=== PATIENT | male | born 1995 | race Hispanic/Latino ===

== ENCOUNTER 2018-04-26 15:30 | Emergency (ER) | payer BC ==
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
[2018-04-26 16:49] VITALS: TEMP 98.9
[2018-04-26 16:50] VITALS: BP 144/101; O2SAT 99
== END 2018-04-26 16:21 | disposition home or self-care (01) ==
LOC: ER 15:30
DX: T65.893A Toxic effect of other specified substances, assault, initial encounter (principal); Y92.9 Unspecified place or not applicable
CPT/HCPCS: 99283

== ENCOUNTER 2019-02-01 14:19 | Emergency (ER) | payer BC ==
--- NOTE | 2019-02-01 14:48 | EDPHYS ---
Physician Documentation [facility] Name: Demetrio Rizzo Age: 23 yrs Sex: Male : 1995 Arrival Date: 02/01/2019 Time: 14:21 Bed 20 Private MD: ED Physician Ben Mann HPI: 02/01 14:44 This 23 yrs old Male presents to ER via Ambulatory with complaints of Chest snw Pain. 14:44 The patient or guardian reports chest pain that is located primarily in the substernal snw area. The pain does not radiate. Associated signs and symptoms: The patient has no apparent associated signs or symptoms. The chest pain is described as sharp. Duration: The patient or guardian reports multiple episodes, that are intermittent, over past several months. Severity of pain: At its worst the pain was mild. The patient has experienced similar episodes in the past. The patient has not recently seen a physician. pt was placed on HTN med while encarcerated, lost prescription. + smoker. Historical: - Allergies: 14:26 No Known Allergies; aa5 - Home Meds: 14:26 None [Active]; aa5 - PMHx: 14:26 Hypertension; aa5 - PSHx: 14:26 Appendectomy; aa5 - Immunization history:: Adult Immunizations unknown. - Ebola Screening: : No symptoms or risks identified at this time. - Social history:: Smoking status: Patient/guardian denies using tobacco. ROS: 14:46 Constitutional: Negative for fever, chills, and weight loss, Eyes: Negative for injury, snw pain, redness, and discharge, ENT: Negative for injury, pain, and discharge, Neck: Negative for injury, pain, and swelling, Cardiovascular: Negative for palpitations and edema, + chest pain Respiratory: Negative for shortness of breath, cough, wheezing, and pleuritic chest pain, Abdomen/GI: Negative for abdominal pain, nausea, vomiting, diarrhea, and constipation, Back: Negative for injury and pain, : Negative for injury, bleeding, discharge, and swelling, MS/Extremity: Negative for injury and deformity, Skin: Negative for injury, rash, and discoloration, Neuro: Negative for headache, weakness, numbness, tingling, and seizure. Exam: 14:46 Constitutional: This is a well developed, well nourished patient who is awake, alert, snw and in no acute distress. Head/Face: Normocephalic, atraumatic. Eyes: Pupils equal round and reactive to light, extra-ocular motions intact. Lids and lashes normal. Conjunctiva and sclera are non-icteric and not injected. Cornea within normal limits. Periorbital areas with no swelling, redness, or edema. ENT: Nares patent. No nasal discharge, no septal abnormalities noted. Tympanic membranes are normal and external auditory canals are clear. Oropharynx with no redness, swelling, or masses, exudates, or evidence of obstruction, uvula midline. Mucous membranes moist. Neck: Trachea midline, no thyromegaly or masses palpated, and no cervical lymphadenopathy. Supple, full range of motion without nuchal rigidity, or vertebral point tenderness. No Meningismus. Chest/axilla: Normal chest wall appearance and motion. Nontender with no deformity. No lesions are appreciated. Cardiovascular: Bradycardic rate and rhythm with a normal S1 and S2. No gallops, murmurs, or rubs. Normal PMI, no JVD. No pulse deficits. Respiratory: Lungs have equal breath sounds bilaterally, clear to auscultation and percussion. No rales, rhonchi or wheezes noted. No increased work of breathing, no retractions or nasal flaring. Abdomen/GI: Soft, non-tender, with normal bowel sounds. No distension or tympany. No guarding or rebound. No evidence of tenderness throughout. Back: No spinal tenderness. No costovertebral tenderness. Full range of motion. Skin: Warm, dry with normal turgor. Normal color with no rashes, no lesions, and no evidence of cellulitis. MS/ Extremity: Pulses equal, no cyanosis. Neurovascular intact. Full, normal range of motion. Neuro: Awake and alert, GCS 15, oriented to person, place, time, and situation. Cranial nerves II-XII grossly intact. Motor strength 5/5 in all extremities. Sensory grossly intact. Cerebellar exam normal. Normal gait. Vital Signs: 14:26 BP 146 / 99; Pulse 80; Resp 16 S; Temp 99.4(TE); Pulse Ox 97% on R/A; Weight 86.18 kg aa5 (R); Height 5 ft. 6 in. (167.64 cm) (R); Pain 0/10; 14:26 Body Mass Index 30.67 (86.18 kg, 167.64 cm) aa5 MDM: 14:36 Patient medically screened. snw 14:50 ECG:. Data reviewed: vital signs, nurses notes. snw 02/01 14:36 Order name: Chest Pa And Lat (2 Views) XRAY; Complete Time: 15:01 snw 02/01 14:36 Order name: EKG; Complete Time: 14:36 snw 02/01 14:36 Order name: EKG - Nurse/Tech; Complete Time: 14:59 snw EC:50 Rate is 52 beats/min. Rhythm is irregular. IN interval is normal. QRS interval is snw normal. QT interval is normal. No Q waves. Clinical impression: Sinus bradycardia. Administered Medications: 15:07 Drug: Lisinopril 5 mg Route: PO; aj 15:07 Follow up: Response: Medication administered at discharge. aj Disposition: 15:44 Co-signature as Attending Physician, Ben Mann MD. rn Disposition: 02/01/19 14:48 Discharged to Home. Impression: Essential (primary) hypertension. - Condition is Stable. - Discharge Instructions: Hypertension, Heart Disease Prevention, Steps to Quit Smoking, Smoking Hazards, How to Take Your Blood Pressure, Rqeu-[id number], DASH Eating Plan, Managing Your Hypertension, Form - Blood Pressure Record Sheet. - Prescriptions for Lisinopril 5 mg Oral Tablet - take 1 tablet by ORAL route once daily; 20 tablet. - Medication Reconciliation Form, Thank You Letter, Antibiotic Education, Prescription Opioid Use form. - Follow up: Private Physician; When: 2 - 3 days; Reason: Recheck today's complaints, Continuance of care, Re-evaluation by your physician. Follow up: Emergency Department; When: As needed; Reason: Worsening of condition. Signatures: Dispatcher [employer] Marcella Rogers RN RN Laury Fink, CORRECTIVE THERAPY AIDE-C CORRECTIVE THERAPY AIDE-Csnw Ben Mann MD MD rn Calderon, Audri, RN RN aa5 Corrections: (The following items were deleted from the chart) 15:09 14:48 02/01/2019 14:48 Discharged to Home. Impression: Essential (primary) aj hypertension. Condition is Stable. Forms are Medication Reconciliation Form, Thank You Letter, Antibiotic Education, Prescription Opioid Use. Follow up: Private Physician; When: 2 - 3 days; Reason: Recheck today's complaints, Continuance of care, Re-evaluation by your physician. Follow up: Emergency Department; When: As needed; Reason: Worsening of condition. snw
--- NOTE | 2019-02-01 14:48 | ER ---
Nurse's Notes [facility] Name: Demetrio Rizzo Age: 23 yrs Sex: Male : 1995 Arrival Date: 02/01/2019 Time: 14:21 Bed 20 Private MD: Diagnosis: Essential (primary) hypertension Presentation: 02/01 14:24 Presenting complaint: Patient states: episodic chest pain x 3 months ago. Pt reports aa5 last episode was this morning and pain lasted 15-20 minutes. Transition of care: patient was not received from another setting of care. Onset of symptoms was 2018. Risk Assessment: Do you want to hurt yourself or someone else? Patient reports no desire to harm self or others. Initial Sepsis Screen: Does the patient meet any 2 criteria? No. Patient's initial sepsis screen is negative. Does the patient have a suspected source of infection? No. Patient's initial sepsis screen is negative. Care prior to arrival: None. 14:24 Method Of Arrival: Ambulatory aa5 14:24 Acuity: DEDE 3 aa5 Historical: - Allergies: 14:26 No Known Allergies; aa5 - Home Meds: 14:26 None [Active]; aa5 - PMHx: 14:26 Hypertension; aa5 - PSHx: 14:26 Appendectomy; aa5 - Immunization history:: Adult Immunizations unknown. - Ebola Screening: : No symptoms or risks identified at this time. - Social history:: Smoking status: Patient/guardian denies using tobacco. Screenin:08 Abuse screen: Denies threats or abuse. Denies injuries from another. Nutritional aj screening: No deficits noted. Tuberculosis screening: No symptoms or risk factors identified. Fall Risk None identified. Assessment: 15:08 General: Appears in no apparent distress. comfortable, Behavior is calm, cooperative, aj appropriate for age. Pain: Denies pain. Neuro: Level of Consciousness is awake, alert, obeys commands, Oriented to person, place, time, situation, Appropriate for age. Cardiovascular: Capillary refill < 3 seconds in bilateral fingers Patient's skin is warm and dry. Respiratory: Airway is patent Respiratory effort is even, unlabored, Respiratory pattern is regular, symmetrical. Derm: Skin is intact, is healthy with good turgor, Skin is pink, warm \T\ dry. normal. Vital Signs: 14:26 BP 146 / 99; Pulse 80; Resp 16 S; Temp 99.4(TE); Pulse Ox 97% on R/A; Weight 86.18 kg aa5 (R); Height 5 ft. 6 in. (167.64 cm) (R); Pain 0/10; 14:26 Body Mass Index 30.67 (86.18 kg, 167.64 cm) aa5 ED Course: 14:21 Patient arrived in ED. as 14:24 Arm band placed on. aa5 14:26 Triage completed. aa5 14:30 Marcella Shankar, RN is Primary Nurse. aj 14:35 Laury Roldan FNP-C is PHCP. snw 14:35 Ben Mann MD is Attending Physician. snw 14:50 Chest Pa And Lat (2 Views) XRAY In Process Unspecified. EDMS 15:08 Patient has correct armband on for positive identification. aj 15:08 No provider procedures requiring assistance completed. Patient did not have IV access aj during this emergency room visit. Patient maintains SpO2 saturation greater than 95% on room air. Administered Medications: 15:07 Drug: Lisinopril 5 mg Route: PO; aj 15:07 Follow up: Response: Medication administered at discharge. aj Outcome: 14:48 Discharge ordered by . snw 15:08 Discharged to home ambulatory. aj 15:08 Condition: good 15:08 Discharge instructions given to patient, Instructed on discharge instructions, follow up and referral plans. medication usage, Demonstrated understanding of instructions, follow-up care, medications, Prescriptions given X 1. 15:09 Patient left the ED. aj Signatures: Dispatcher [employer] EDGA Marcella Shankar, RN Laury Flores FNP-C FNP-Arina Auguste Audri RN RN aa
--- NOTE | 2019-02-01 15:01 | RAD REPORT ---
EXAM DESCRIPTION: Sanju Tran (2 Views)02/01/2019 2:52 pm CLINICAL HISTORY: Cough COMPARISON: None FINDINGS: The lungs appear clear of acute infiltrate. The heart is normal size IMPRESSION: No acute abnormalities displayed
[2019-02-01] MEDS ORDERED: LISINOPRIL 5 MG TAB ONE (15:18)
[2019-02-01 15:40] VITALS: BP 146/99; TEMP 99.4; O2SAT 97
--- NOTE | 2019-02-01 20:09 | EKG ---
Test Date: 2019-02-01 Test Time: 14:43:52 Construction Field Engineer: COLETTE MEASUREMENT RESULTS: Intervals: Rate: 52 WV: 168 QRSD: 94 QT: 386 QTc: 358 [place]: P: 16 WV: 168 QRS: 36 T: 28 INTERPRETIVE STATEMENTS: Sinus bradycardia with marked sinus arrhythmia Incomplete right bundle branch block Borderline ECG Compared to ECG 07/19/2005 13:14:46 Incomplete right bundle-branch block now present Electronically Signed On 02-01-19 20:08:17 CDT by Nemesio Melendrez
== END 2019-02-01 15:09 | disposition home or self-care (01) ==
LOC: ER 14:19
DX: R07.9 Chest pain, unspecified (principal); I10 Essential (primary) hypertension
CPT/HCPCS: 71046; 93005; 99284

== ENCOUNTER 2019-02-23 07:42 | Emergency (ER) | payer BC ==
[2019-02-23] MEDS ORDERED: LIDOCAINE VISCOUS 2% SOLN 15 ML UDC ONE ×2 (08:04→08:19)
[2019-02-23] MEDS ORDERED: IBUPROFEN 400 MG TAB ONE (08:15)
[2019-02-23] MEDS ORDERED: IBUPROFEN 200 MG TAB PO ONE (08:16)
[2019-02-23] MEDS ORDERED: ACETAMINOPHEN 500 MG TAB ONE (08:16)
--- NOTE | 2019-02-23 08:18 | ER ---
Nurse's Notes [facility] Name: Demetrio Rizzo Age: 23 yrs Sex: Male : 1995 Arrival Date: 02/23/2019 Time: 07:42 Bed 16 Private MD: Diagnosis: acute inflammed non-thombosed hemorrhoid Presentation: 02/23 07:43 Presenting complaint: EMS states: from home with complaints of rectal abscess for 4 hj days now, described as quarter coin sized, denies discharge or bleeding on the area, reports chills;. Transition of care: patient was not received from another setting of care. Onset of symptoms was February 23, 2019. Risk Assessment: Do you want to hurt yourself or someone else? Patient reports no desire to harm self or others. Initial Sepsis Screen: Does the patient meet any 2 criteria? No. Patient's initial sepsis screen is negative. Does the patient have a suspected source of infection? No. Patient's initial sepsis screen is negative. Care prior to arrival: None. 07:43 Method Of Arrival: EMS: [facility] 07:43 Acuity: DEDE 3 hj Triage Assessment: 07:46 General: Appears in no apparent distress. uncomfortable, Behavior is calm, cooperative, hj appropriate for age. Pain: Complains of pain in rectum. Historical: - Allergies: 07:45 No Known Allergies; hj - Home Meds: 07:45 None [Active]; hj - PMHx: 07:45 Hypertension; hj - PSHx: 07:45 Appendectomy; hj - Immunization history:: Adult Immunizations up to date. - Social history:: Smoking status: Patient uses tobacco products, Patient uses alcohol. - Ebola Screening: : Patient negative for fever greater than or equal to 101.5 degrees Fahrenheit, and additional compatible Ebola Virus Disease symptoms Patient denies exposure to infectious person Patient denies travel to an Ebola-affected area in the 21 days before illness onset. - Family history:: not pertinent. - Hospitalizations: : No recent hospitalization is reported. Screenin:46 Abuse screen: Denies threats or abuse. Denies injuries from another. Nutritional hj screening: No deficits noted. Tuberculosis screening: No symptoms or risk factors identified. Fall Risk None identified. Vital Signs: 07:46 BP 159 / 91; Pulse 86; Resp 18; Temp 98.8(O); Pulse Ox 98% on R/A; Weight 97.52 kg; hj Height 5 ft. 6 in. (167.64 cm); Pain 10/10; 07:46 Body Mass Index 34.70 (97.52 kg, 167.64 cm) ED Course: 07:42 Patient arrived in ED. hj 07:43 Jose Kenyon RN is Primary Nurse. hj 07:44 Triage completed. hj 07:45 Manish Gonzalez MD is Attending Physician. wa 07:46 Arm band placed on right wrist. hj 07:46 Patient has correct armband on for positive identification. Placed in gown. Bed in low hj position. Call light in reach. Side rails up X 1. Adult w/ patient. 08:13 Ronal Fierro MD is Referral Physician. wa 08:34 No provider procedures requiring assistance completed. Patient did not have IV access hj during this emergency room visit. Administered Medications: 08:03 Drug: Motrin 600 mg Route: PO; hj 08:36 Follow up: Response: No adverse reaction; Pain is decreased hj 08:03 Drug: Tylenol 1000 mg Route: PO; hj 08:35 Follow up: Response: No adverse reaction; Pain is decreased hj 08:04 Drug: Viscous Lidocaine Liquid (4 %) 5 ml Route: Mucous Membrane; hj 08:35 Follow up: Response: No adverse reaction; Pain is decreased hj Outcome: 08:18 Discharge ordered by . wa 08:35 Discharged to home ambulatory. hj 08:35 Condition: stable 08:35 Discharge instructions given to patient, Instructed on discharge instructions, follow up and referral plans. medication usage, Demonstrated understanding of instructions, follow-up care, medications, Prescriptions given X 4. 08:36 Patient left the ED. Signatures: Jose Kenyon RN RN Manish Gonzalez MD MD ny
--- NOTE | 2019-02-23 08:19 | EDPHYS ---
Physician Documentation [facility] Name: Demetrio Rizzo Age: 23 yrs Sex: Male : 1995 Arrival Date: 02/23/2019 Time: 07:42 Bed 16 Private MD: ED Physician Manish Gonzalez HPI: 02/23 08:05 This 23 yrs old Male presents to ER via EMS with complaints of Rectal Abscess. wa 08:05 The patient presents to the emergency department with pain in the rectal area, that is wa moderate, swelling. rectal area. Onset: The symptoms/episode began/occurred 4 day(s) ago. Context: the patient has no known special context relating to the rectal area complaint(s). Modifying factors: The symptoms are alleviated by nothing, The symptoms are aggravated by bowel movement, sitting position, touch. Associate signs and symptoms: The patient has no apparent associated signs or symptoms. The patient has not experienced similar symptoms in the past. The patient has not recently seen a physician. Historical: - Allergies: 07:45 No Known Allergies; hj - Home Meds: 07:45 None [Active]; hj - PMHx: 07:45 Hypertension; hj - PSHx: 07:45 Appendectomy; hj - Immunization history:: Adult Immunizations up to date. - Social history:: Smoking status: Patient uses tobacco products, Patient uses alcohol. - Ebola Screening: : Patient negative for fever greater than or equal to 101.5 degrees Fahrenheit, and additional compatible Ebola Virus Disease symptoms Patient denies exposure to infectious person Patient denies travel to an Ebola-affected area in the 21 days before illness onset. - Family history:: not pertinent. - Hospitalizations: : No recent hospitalization is reported. ROS: 08:07 Constitutional: Negative for fever, chills, and weight loss, Eyes: Negative for injury, wa pain, redness, and discharge, ENT: Negative for injury, pain, and discharge, Neck: Negative for injury, pain, and swelling, Cardiovascular: Negative for chest pain, palpitations, and edema, Respiratory: Negative for shortness of breath, cough, wheezing, and pleuritic chest pain, Back: Negative for injury and pain, : Negative for injury, bleeding, discharge, and swelling, MS/Extremity: Negative for injury and deformity, Skin: Negative for injury, rash, and discoloration, Neuro: Negative for headache, weakness, numbness, tingling, and seizure, Psych: Negative for depression, anxiety, suicide ideation, homicidal ideation, and hallucinations. 08:07 Abdomen/GI: Positive for rectal pain, and swelling, Negative for nausea and vomiting, diarrhea. Exam: 08:08 Constitutional: This is a well developed, well nourished patient who is awake, alert, wa and in no acute distress. Head/Face: Normocephalic, atraumatic. Eyes: Pupils equal round and reactive to light, extra-ocular motions intact. Lids and lashes normal. Conjunctiva and sclera are non-icteric and not injected. Cornea within normal limits. Periorbital areas with no swelling, redness, or edema. ENT: Nares patent. No nasal discharge, no septal abnormalities noted. Tympanic membranes are normal and external auditory canals are clear. Oropharynx with no redness, swelling, or masses, exudates, or evidence of obstruction, uvula midline. Mucous membranes moist. Neck: Trachea midline, no thyromegaly or masses palpated, and no cervical lymphadenopathy. Supple, full range of motion without nuchal rigidity, or vertebral point tenderness. No Meningismus. Cardiovascular: Regular rate and rhythm with a normal S1 and S2. No gallops, murmurs, or rubs. Normal PMI, no JVD. No pulse deficits. Respiratory: Lungs have equal breath sounds bilaterally, clear to auscultation and percussion. No rales, rhonchi or wheezes noted. No increased work of breathing, no retractions or nasal flaring. Back: No spinal tenderness. No costovertebral tenderness. Full range of motion. Skin: Warm, dry with normal turgor. Normal color with no rashes, no lesions, and no evidence of cellulitis. MS/ Extremity: Pulses equal, no cyanosis. Neurovascular intact. Full, normal range of motion. Neuro: Awake and alert, GCS 15, oriented to person, place, time, and situation. Cranial nerves II-XII grossly intact. Motor strength 5/5 in all extremities. Sensory grossly intact. Cerebellar exam normal. Normal gait. Psych: Awake, alert, with orientation to person, place and time. Behavior, mood, and affect are within normal limits. 08:08 Abdomen/GI: Inspection: abdomen appears normal, Bowel sounds: normal, Palpation: abdomen is soft and non-tender, Rectal exam: mass, that is moderate-sized, with tenderness, consistent with inflammed, non-thrombosed hemorrhoid. Vital Signs: 07:46 BP 159 / 91; Pulse 86; Resp 18; Temp 98.8(O); Pulse Ox 98% on R/A; Weight 97.52 kg; hj Height 5 ft. 6 in. (167.64 cm); Pain 10/10; 07:46 Body Mass Index 34.70 (97.52 kg, 167.64 cm) Procedures: 08:22 Performed rectal application of viscous lidocaine. Indication: rectal pain. applied wa about 3cc's of lidocaine in area of rectal hemorrhoid. pt tolerated fairly well.. MDM: 07:45 Patient medically screened. ms 08:11 Differential diagnosis: hemorrhoids, non--thrombosed. will treat pain. viscous lido in wa area for [place]. anusol HC supp. will refer to gen surg. Data reviewed: vital signs, nurses notes. Administered Medications: 08:03 Drug: Motrin 600 mg Route: PO; 08:36 Follow up: Response: No adverse reaction; Pain is decreased 08:03 Drug: Tylenol 1000 mg Route: PO; hj 08:35 Follow up: Response: No adverse reaction; Pain is decreased 08:04 Drug: Viscous Lidocaine Liquid (4 %) 5 ml Route: Mucous Membrane; hj 08:35 Follow up: Response: No adverse reaction; Pain is decreased Disposition: 02/23/19 08:18 Discharged to Home. Impression: acute inflammed non-thombosed hemorrhoid. - Condition is Stable. - Discharge Instructions: Hemorrhoids, [id number]-Woyh. - Prescriptions for Anusol- HC 25 mg Rectal Suppository - insert 1 suppository by RECTAL route every 12 hours for 7 days; 14 suppository. lidocaine HCl- hydrocortison ac 3-0.5 % Topical cream - apply 1 inch by TOPICAL route 2 times per day; 1 box. Ibuprofen 600 mg Oral Tablet - take 1 tablet by ORAL route every 6 hours As needed take with food; 30 tablet. Senna Laxative 25 mg Oral tablet - take 2 tablet by ORAL route once daily As needed; 10 tablet. - Medication Reconciliation Form, Thank You Letter, Antibiotic Education, Prescription Opioid Use form. - Follow up: Ronal Fierro MD; When: 1 - 2 days; Reason: Recheck today's complaints. - Problem is new. - Symptoms have improved. - Notes: use medication as prescribed. see the surgeon prescribed you for further evaluation and potential treatment Signatures: Jose Kenyon RN RN Manish Gonzalez MD MD wa Corrections: (The following items were deleted from the chart) 08:36 08:18 02/23/2019 08:18 Discharged to Home. Impression: acute inflammed non-thombosed hj hemorrhoid. Condition is Stable. Forms are Medication Reconciliation Form, Thank You Letter, Antibiotic Education, Prescription Opioid Use. Follow up: Dr. Ronal Fierro; When: 1 - 2 days; Reason: Recheck today's complaints. Problem is new. Symptoms have improved. wa
[2019-02-23 08:46] VITALS: BP 159/91; TEMP 98.8; O2SAT 98
== END 2019-02-23 08:36 | disposition home or self-care (01) ==
LOC: ER 07:42
DX: K64.9 Unspecified hemorrhoids (principal); I10 Essential (primary) hypertension; Z72.0 Tobacco use
CPT/HCPCS: 99283

== ENCOUNTER 2019-06-30 07:47 | Emergency (ER) | payer BC ==
--- NOTE | 2019-06-30 08:53 | ER ---
Nurse's Notes [facility] Name: Demetrio Rizzo Age: 23 yrs Sex: Male : 1995 Arrival Date: 06/30/2019 Time: 07:48 Bed 13 Private MD: Diagnosis: Acute upper respiratory infection, unspecified Presentation: 06/30 07:55 Presenting complaint: Sore throat, runny nose, and nonproductive cough x 3 day. hb Transition of care: patient was not received from another setting of care. Onset of symptoms was June 28, 2019. Risk Assessment: Do you want to hurt yourself or someone else? Patient reports no desire to harm self or others. Care prior to arrival: None. 07:55 Method Of Arrival: Ambulatory hb 07:55 Acuity: DEDE 4 hb 07:55 Initial Sepsis Screen: Does the patient meet any 2 criteria? No. Patient's initial rb1 sepsis screen is negative. Does the patient have a suspected source of infection? No. Patient's initial sepsis screen is negative. Historical: - Allergies: 07:56 No Known Allergies; hb - Home Meds: 07:56 None [Active]; hb - PMHx: 07:56 Hypertension; hb - PSHx: 07:56 Appendectomy; hb - Immunization history:: Adult Immunizations up to date. - Social history:: Smoking status: Patient/guardian denies using tobacco. - Ebola Screening: : No symptoms or risks identified at this time. - Family history:: not pertinent. - Hospitalizations: : No recent hospitalization is reported. Screenin:55 Abuse screen: Denies threats or abuse. Nutritional screening: No deficits noted. rb1 Tuberculosis screening: No symptoms or risk factors identified. Fall Risk None identified. Assessment: 07:55 General: Appears uncomfortable, Behavior is calm, cooperative, Reports fever for rb1 feeling ill for. Pain: Complains of pain in head, throat Pain currently is 7 out of 10 on a pain scale. Pain began x 3 days. Neuro: Level of Consciousness is awake, alert, obeys commands, Oriented to person, place, time, situation. Neuro: Reports headache frontal area. Cardiovascular: Capillary refill < 3 seconds is brisk in bilateral fingers. Respiratory: Reports cough that is non-productive, Airway is patent Respiratory effort is even, unlabored, Respiratory pattern is regular, symmetrical. GI: Reports diarrhea. : No signs and/or symptoms were reported regarding the genitourinary system. EENT: Throat is reddened Reports nasal congestion. Derm: Skin is pink, warm \T\ dry. 08:55 Reassessment: Patient appears in no apparent distress at this time. No changes from rb1 previously documented assessment. Vital Signs: 07:56 BP 158 / 103; Pulse 80; Resp 16; Temp 97.3(TE); Pulse Ox 97% on R/A; Weight 86.18 kg; hb Height 5 ft. 6 in. (167.64 cm); Pain 6/10; 08:55 BP 133 / 89; Pulse 68; Resp 17; Temp 97.9(O); Pulse Ox 98% on R/A; Pain 5/10; rb1 07:56 Body Mass Index 30.67 (86.18 kg, 167.64 cm) hb ED Course: 07:48 Patient arrived in ED. as 07:50 Ben Mann MD is Attending Physician. rn 07:51 Marcie Osullivan, RN is Primary Nurse. rb1 07:55 Patient has correct armband on for positive identification. Bed in low position. Call rb1 light in reach. Side rails up X 1. Pulse ox on. NIBP on. 07:56 Triage completed. hb 07:56 Arm band placed on. hb 08:00 Flu and/or RSV swab sent to lab. Strep swab sent to lab. rb1 08:59 No provider procedures requiring assistance completed. Patient did not have IV access rb1 during this emergency room visit. Administered Medications: No medications were administered Outcome: 08:52 Discharge ordered by . rn 08:59 Discharged to home ambulatory. rb1 08:59 Condition: stable 08:59 Discharge instructions given to patient, Instructed on discharge instructions, follow up and referral plans. Demonstrated understanding of instructions, follow-up care, Prescriptions given X none 08:59 Patient left the ED. rb1 Signatures: Arina Brewster as Ben Mann MD MD rn Barber, Rebecca, RN RN rb1 Marcelina Disla, PHYLLIS RN Corrections: (The following items were deleted from the chart) 09:16 09:15 Patient left the ED. rb1 rb1
--- NOTE | 2019-06-30 08:54 | EDPHYS ---
Physician Documentation [facility] Name: Demetrio Rizzo Age: 23 yrs Sex: Male : 1995 Arrival Date: 06/30/2019 Time: 07:48 Bed 13 Private MD: ED Physician Ben Mann HPI: 06/30 08:35 This 23 yrs old Male presents to ER via Ambulatory with complaints of Sore rn Throat. 08:35 The patient presents with sore throat. The patient describes throat pain as rn intermittent, raw. Onset: The symptoms/episode began/occurred 3 day(s) ago. Severity of symptoms: At their worst the symptoms were mild, in the emergency department the symptoms are unchanged. Modifying factors: The symptoms are alleviated by nothing, the symptoms are aggravated by swallowing. Modifying factors: Patient's oral intake status: good. The patient has experienced similar episodes in the past. The patient has not recently seen a physician. Reports sore throat, cough, congestion, fatigue for 3 days, daughter with similar symptoms, not tested, and feels better. Not sob. No abd pain.. Historical: - Allergies: 07:56 No Known Allergies; hb - Home Meds: 07:56 None [Active]; hb - PMHx: 07:56 Hypertension; hb - PSHx: 07:56 Appendectomy; hb - Immunization history:: Adult Immunizations up to date. - Social history:: Smoking status: Patient/guardian denies using tobacco. - Ebola Screening: : No symptoms or risks identified at this time. - Family history:: not pertinent. - Hospitalizations: : No recent hospitalization is reported. ROS: 08:35 Constitutional: Negative for fever, chills, and weight loss, Eyes: Negative for injury, rn pain, redness, and discharge, ENT: + sore throat and congestion Cardiovascular: Negative for chest pain, palpitations, and edema, Respiratory: Negative for shortness of breath, wheezing, and pleuritic chest pain, Abdomen/GI: Negative for abdominal pain, nausea, vomiting, diarrhea, and constipation, MS/Extremity: Negative for injury and deformity, Skin: Negative for injury, rash, and discoloration, Neuro: Negative for weakness, numbness, tingling, and seizure. Exam: 08:35 Constitutional: This is a well developed, well nourished patient who is awake, alert, rn and in no acute distress. Ambulatory to room without difficulty or assistance. Head/Face: Normocephalic, atraumatic. Eyes: Pupils equal round and reactive to light, extra-ocular motions intact. Lids and lashes normal. Conjunctiva and sclera are non-icteric and not injected. Cornea within normal limits. Periorbital areas with no swelling, redness, or edema. ENT: + mild tonsillar hypertrophy without exudate, + non-tender anterior cervical LAD, no stridor or swelling. Neck: Trachea midline. Supple, full range of motion without nuchal rigidity, or vertebral point tenderness. No Meningismus. Cardiovascular: Regular rate and rhythm. No pulse deficits. Respiratory: No increased work of breathing, no retractions or nasal flaring. Abdomen/GI: soft, non-tender MS/ Extremity: Pulses equal, no cyanosis. Neurovascular intact. Full, normal range of motion. Equal circumference. Neuro: Awake and alert, GCS 15, oriented to person, place, time, and situation. Vital Signs: 07:56 BP 158 / 103; Pulse 80; Resp 16; Temp 97.3(TE); Pulse Ox 97% on R/A; Weight 86.18 kg; hb Height 5 ft. 6 in. (167.64 cm); Pain 6/10; 08:55 BP 133 / 89; Pulse 68; Resp 17; Temp 97.9(O); Pulse Ox 98% on R/A; Pain 5/10; rb1 07:56 Body Mass Index 30.67 (86.18 kg, 167.64 cm) hb MDM: 07:50 Patient medically screened. rn 08:52 Differential diagnosis: group A strep tonsillitis, influenza. Data reviewed: vital rn signs, nurses notes, lab test result(s), and as a result, I will discharge patient. Counseling: I had a detailed discussion with the patient and/or guardian regarding: the historical points, exam findings, and any diagnostic results supporting the discharge/admit diagnosis, lab results, the need for outpatient follow up, to return to the emergency department if symptoms worsen or persist or if there are any questions or concerns that arise at home. Special discussion: I discussed with the patient/guardian in detail that at this point there is no indication for admission to the hospital. It is understood, however, that if the symptoms persist or worsen the patient needs to return immediately for re-evaluation. 06/30 07:57 Order name: Flu; Complete Time: 08:51 rb1 06/30 07:57 Order name: Strep; Complete Time: 08:51 rb1 06/30 08:51 Order name: Throat Culture EDMS Administered Medications: No medications were administered Disposition: 06/30/19 08:52 Discharged to Home. Impression: Acute upper respiratory infection, unspecified. - Condition is Stable. - Discharge Instructions: Upper Respiratory Infection, Adult, Viral Respiratory Infection. - Medication Reconciliation Form, Thank You Letter, Antibiotic Education, Prescription Opioid Use form. - Follow up: Private Physician; When: As needed; Reason: Recheck today's complaints, Re-evaluation by your physician. - Problem is new. - Symptoms have improved. Signatures: Dispatcher [employer] EDMS Ben Mann MD MD rn Barber, Rebecca, RN RN rb1 Marcelina Disla RN RN Corrections: (The following items were deleted from the chart) 09:15 08:52 06/30/2019 08:52 Discharged to Home. Impression: Acute upper respiratory rb1 infection, unspecified. Condition is Stable. Forms are Medication Reconciliation Form, Thank You Letter, Antibiotic Education, Prescription Opioid Use. Follow up: Private Physician; When: As needed; Reason: Recheck today's complaints, Re-evaluation by your physician. Problem is new. Symptoms have improved. rn
[2019-06-30 09:21] VITALS: BP 133/89; TEMP 97.9; O2SAT 98
== END 2019-06-30 09:15 | disposition home or self-care (01) ==
LOC: ER 07:47
DX: J06.9 Acute upper respiratory infection, unspecified (principal)
CPT/HCPCS: 87070; 87081; 87804; 99283

== ENCOUNTER 2020-10-03 16:35 | Emergency (ER) | payer BC, SELFPAY ==
[2020-10-03 18:36] LABS: SARS-COV-2 RT PCR POSITIVE (NEGATIVE)
--- NOTE | 2020-10-03 22:49 | ER ---
Nurse's Notes [facility] Name: Demetrio Rizzo Jr Age: 25 yrs Sex: Male : 1995 Arrival Date: 10/03/2020 Time: 16:38 Bed External Waiting Private MD: Diagnosis: Presentation: 10/03 16:51 Chief complaint: Patient states: Body aches, N/V, fatigue, body feels weak, cough x 3 - ca1 4 days. Denies fever. Coronavirus screen: Client denies travel out of the [place] in the last 14 days. cough unrelated to allergies, fatigue, muscle pain, nausea, vomiting. Client presents with at least one sign or symptom that may indicate coronavirus-19. Standard/surgical mask placed on the client. Provider contacted for isolation considerations. Ebola Screen: Patient negative for fever greater than or equal to 101.5 degrees Fahrenheit, and additional compatible Ebola Virus Disease symptoms Patient denies exposure to infectious person. Patient denies travel to an Ebola-affected area in the 21 days before illness onset. No symptoms or risks identified at this time. Initial Sepsis Screen: Does the patient meet any 2 criteria? No. Patient's initial sepsis screen is negative. Does the patient have a suspected source of infection? No. Patient's initial sepsis screen is negative. Risk Assessment: Do you want to hurt yourself or someone else? Patient reports no desire to harm self or others. Onset of symptoms was October 03, 2020. 16:51 Method Of Arrival: Ambulatory ca1 16:51 Acuity: DEDE 4 ca1 Historical: - Allergies: 16:53 No Known Allergies; ca1 - Home Meds: 16:53 None [Active]; ca1 - PMHx: 16:53 Hypertension; ca1 - PSHx: 16:53 Appendectomy; ca1 - Immunization history:: Flu vaccine is not up to date. - Social history:: Smoking status: Patient denies any tobacco usage or history of. Assessment: 21:27 Reassessment: Called patient from pool. No answer. Unable to locate patient. Vital Signs: 16:51 BP 130 / 93; Pulse 54; Resp 16 S; Temp 98.0(TE); Pulse Ox 98% on R/A; Weight 99.79 kg ca1 (R); Height 5 ft. 6 in. (167.64 cm) (R); Pain 7/10; 16:51 Body Mass Index 35.51 (99.79 kg, 167.64 cm) ca1 ED Course: 16:38 Patient arrived in ED. am2 16:52 Triage completed. ca1 16:53 Arm band placed on right wrist. ca1 19:38 John Mai MD is Attending Physician. tw4 22:46 Patient's name was called from ER lobby. No response. Unable to locate patient. Will sg disposition as left without being seen by a provider. Administered Medications: No medications were administered Outcome: 22:48 Patient left the ED. sg Signatures: Adam Schmitz RN RN sg Galina Fuentes RN RN Marcella Edge am2 John Mai MD MD tw4 Lisa Haywood RN RN [facility] Corrections: (The following items were deleted from the chart) 17:08 16:56 Influenza Screen (A \T\ B)+[id number].BRZ drawn and sent. ca1 EDMS
[2020-10-04 03:06] VITALS: BP 130/93; TEMP 98; O2SAT 98
== END 2020-10-03 22:48 | disposition left against medical advice (07) ==
LOC: ER 16:35
DX: U07.1 COVID-19 (principal); Z53.21 Procedure and treatment not carried out due to patient leaving prior to being seen by health care provider; I10 Essential (primary) hypertension
CPT/HCPCS: 0240U; 99281

== ENCOUNTER 2021-09-05 22:02 | Emergency (ER) | payer SELFPAY ==
[2021-09-05] MEDS ORDERED: LIDOCAINE JELLY 2%- 5 ML TUBE ONE (22:46)
[2021-09-05] MEDS ORDERED: TETANUS & DIPHTHERIA TOX,ADULT 0.5 ML VIAL ONE (22:47)
--- NOTE | 2021-09-05 23:41 | EDPHYS ---
Physician Documentation [facility] Name: Demetrio Rizzo Jr Age: 26 yrs Sex: Male : 1995 Arrival Date: 09/05/2021 Time: 22:03 Bed 4 Private MD: ED Physician Tee Crawford HPI: 09/05 23:42 This 26 yrs old Male presents to ER via Ambulatory with complaints of kb Laceration To Head. 23:42 The patient has a laceration related to: falling from a standing position, occurred at home, and there are no complicating factors. The injury was accidental. The laceration(s) is(are) located on the right frontal area. Onset: The symptoms/episode began/occurred just prior to arrival. Associated signs and symptoms: The patient has no apparent associated signs or symptoms. The patient has not experienced similar symptoms in the past. The patient has not recently seen a physician. Pt states he was horseplaying and fell, hitting head on the corner of a glass table. States he felt like he was going in and out afterwards, but did not lose consciousness. Historical: - Allergies: 22:07 No Known Allergies; vc1 - Home Meds: 22:07 None [Active]; vc1 - PMHx: 22:07 Hypertension; vc1 - PSHx: 22:07 None; vc1 - Immunization history:: Adult Immunizations up to date, Client reports having NOT received the Covid vaccine. Flu vaccine is up to date. - Social history:: Smoking status: Patient reports the use of cigarette tobacco products, smokes one-half pack cigarettes per day, Reported history of juuling and/or vaping. ROS: 23:41 Constitutional: Negative for fever, chills, and weight loss. kb 23:41 Skin: Positive for laceration(s), of the right frontal area. 23:41 All other systems are negative. Exam: 23:40 Constitutional: This is a well developed, well nourished patient who is awake, alert, kb and in no acute distress. ENT: Moist Mucous membranes Cardiovascular: Regular rate and rhythm with a normal S1 and S2. No gallops, murmurs, or rubs. No pulse deficits. Respiratory: Respirations even and unlabored. No increased work of breathing. Talking in full sentences MS/ Extremity: Pulses equal, no cyanosis. Neurovascular intact. Full, normal range of motion. Neuro: Awake and alert, GCS 15, oriented to person, place, time, and situation. Moves all extremities. Normal gait. Psych: Awake, alert, with orientation to person, place and time. Behavior, mood, and affect are within normal limits. 23:40 Head/face: Noted is no obvious of injury or deformity except a laceration(s). 23:40 Skin: injury, laceration(s), the wound is approximately 4 cm(s), of the right frontal area, that can be described as clean, no foreign body, irregular, with mild bleeding. Vital Signs: 22:10 BP 103 / 48; Pulse 49; Resp 20; Temp 98.9; Pulse Ox 100% on R/A; vc1 23:00 BP 138 / 80; Pulse 83; Resp 18 S; Pulse Ox 100% on R/A; as6 09/06 00:00 BP 145 / 86; Pulse 87; Resp 18 S; Pulse Ox 99% on R/A; as6 Laceration: 09/05 23:39 Wound Repair of 4cm ( 1.6in ) subcutaneous laceration to right frontal area. kb Irregularly shaped.. Distal neuro/vascular/tendon intact. Anesthesia: Topical anesthetic administered with 1% lidocaine. Wound prep: Extensive cleansing with hibiclenz by me, Wound irrigation with saline by me. Skin closed with 5 1-0 Jaren using staple gun. Patient tolerated well. MDM: 22:11 Patient medically screened. kb 23:39 Data reviewed: vital signs, nurses notes. Data interpreted: Pulse oximetry: on room air kb is 100 %. Interpretation: normal. Counseling: I had a detailed discussion with the patient and/or guardian regarding: the historical points, exam findings, and any diagnostic results supporting the discharge/admit diagnosis, radiology results, the need for outpatient follow up, a family practitioner, to return to the emergency department if symptoms worsen or persist or if there are any questions or concerns that arise at home. 09/05 22:11 Order name: CT Head Brain wo Cont kb Administered Medications: 22:55 Drug: Lidocaine Gel 2 % 1 application Route: Mucous Membrane; as6 23:49 Follow up: Response: No adverse reaction as6 22:55 Drug: Tetanus-Diphtheria Toxoid Adult 0.5 ml {Professor Of Art History: [employer]. Exp: as6 12/11/2022. Lot #: [id number]. } Route: IM; Site: right deltoid; 23:50 Follow up: Response: No adverse reaction as6 09/06 00:00 Drug: [place] (HYDROcodone-acetaminophen) 10 mg-325 mg 1 tabs Route: PO; as6 00:00 Follow up: Response: No adverse reaction; RASS: Alert and Calm (0) as Disposition: 07:08 Co-signature as Attending Physician, Tee Crawford MD I agree with the assessment and madhav plan of care. Disposition Summary: 09/05/21 23:40 Discharge Ordered Location: Home kb Condition: Stable kb Diagnosis - Laceration without foreign body of scalp kb Followup: kb - With: Emergency Department - When: As needed - Reason: Worsening of condition Followup: kb - With: Private Physician - When: 2 - 3 days - Reason: Recheck today's complaints, Continuance of care, Re-evaluation by your physician Discharge Instructions: - Discharge Summary Sheet kb - Laceration Care, Adult, [id number] kb Forms: - Medication Reconciliation Form kb - Thank You Letter kb - Antibiotic Education kb - Prescription Opioid Use kb Signatures: Dispatcher [employer] EDMS Anna Montoya, INFORMATION TECHNOLOGY ASSOCIATE-C INFORMATION TECHNOLOGY ASSOCIATE-Tee Browne MD MD cha Slawson, Ashby, RN RN as6 Kathy Gandhi RN RN vc1 Corrections: (The following items were deleted from the chart) 09/05 23:44 23:42 Pt states he was horseplaying and fell, hitting head on the corner of a glass kb table. . kb
--- NOTE | 2021-09-05 23:41 | ER ---
"Nurse's Notes [facility] Name: Demetrio Rizzo Jr Age: 26 yrs Sex: Male : 1995 Arrival Date: 09/05/2021 Time: 22:03 Bed 4 Private MD: Diagnosis: Laceration without foreign body of scalp Presentation: 09/05 22:05 Chief complaint: Patient states: I was at my house and the last thing I remember is vc1 losing my balance and hitting the coffee table. We were horse playing and jacking around and I think I tripped. Coronavirus screen: Vaccine status: Patient reports being unvaccinated. Ebola Screen: No symptoms or risks identified at this time. Complicating Factors: There are no complicating factors for this patient. Risk Assessment: Do you want to hurt yourself or someone else? Patient reports no desire to harm self or others. Onset of symptoms was September 05, 2021 at 21:50. 22:05 Method Of Arrival: Ambulatory vc1 22:05 Acuity: DEDE 3 vc1 22:11 Initial Sepsis Screen: Does the patient meet any 2 criteria? No. Patient's initial vc1 sepsis screen is negative. Does the patient have a suspected source of infection? No. Patient's initial sepsis screen is negative. Triage Assessment: 22:07 General: Appears in no apparent distress. uncomfortable, Behavior is calm, cooperative, vc1 appropriate for age. Pain: Complains of pain in top of head and right zoroastrianism Pain does not radiate. Pain currently is 10 out of 10 on a pain scale. Also complains of nausea, headache. EENT: EENT: No deficits noted. Neuro: Level of Consciousness is awake, alert, obeys commands, Oriented to person, place, time, situation, Appropriate for age. Injury Description: Laceration sustained to top of head, right side is bleeding moderately. Historical: - Allergies: 22:07 No Known Allergies; vc1 - Home Meds: 22:07 None [Active]; vc1 - PMHx: 22:07 Hypertension; vc1 - PSHx: 22:07 None; vc1 - Immunization history:: Adult Immunizations up to date, Client reports having NOT received the Covid vaccine. Flu vaccine is up to date. - Social history:: Smoking status: Patient reports the use of cigarette tobacco products, smokes one-half pack cigarettes per day, Reported history of juuling and/or vaping. Screenin:12 Abuse screen: Denies threats or abuse. Nutritional screening: No deficits noted. vc1 Tuberculosis screening: No symptoms or risk factors identified. 09/06 00:04 Fall Risk Fall in past 12 months (25 points). Total Bueno Fall Scale indicates Low Risk as6 Score (25-44 pts). Fall prevention measures have been instituted. Assessment: 09/05 22:45 General: Appears in no apparent distress. Behavior is calm, cooperative. Pain: as6 Complains of pain in right frontal area. Derm: Wound noted right frontal area and right zoroastrianism Wound is laceration. Vital Signs: 22:10 BP 103 / 48; Pulse 49; Resp 20; Temp 98.9; Pulse Ox 100% on R/A; vc1 23:00 BP 138 / 80; Pulse 83; Resp 18 S; Pulse Ox 100% on R/A; as6 09/06 00:00 BP 145 / 86; Pulse 87; Resp 18 S; Pulse Ox 99% on R/A; as6 ED Course: 09/05 22:03 Patient arrived in ED. ag3 22:07 Triage completed. vc1 22:09 Anna Montoya FNP-C is [facility]. kb 22:09 Tee Crawford MD is Attending Physician. kb 22:11 Van Hartmann, PHYLLIS is Primary Nurse. as6 22:11 Arm band placed on right wrist. vc1 22:12 Patient has correct armband on for positive identification. vc1 22:41 CT Head Brain wo Cont In Process Unspecified. EDMS 09/06 00:04 Assist provider with laceration repair using nelson. Patient did not have IV access as6 during this emergency room visit. Administered Medications: 09/05 22:55 Drug: Lidocaine Gel 2 % 1 application Route: Mucous Membrane; as6 23:49 Follow up: Response: No adverse reaction as6 22:55 Drug: Tetanus-Diphtheria Toxoid Adult 0.5 ml {General Manager Food: [employer] - innovate | mentor | invest. Exp: as6 12/11/2022. Lot #: [id number]. } Route: IM; Site: right deltoid; 23:50 Follow up: Response: No adverse reaction as6 09/06 00:00 Drug: [place] (HYDROcodone-acetaminophen) 10 mg-325 mg 1 tabs Route: PO; as6 00:00 Follow up: Response: No adverse reaction; RASS: Alert and Calm (0) as6 Outcome: 09/05 23:40 Discharge ordered by MD. patrick 09/06 00:04 Discharged to home ambulatory. as6 Condition: stable Discharge instructions given to patient, Instructed on discharge instructions, follow up and referral plans. wound care, Demonstrated understanding of instructions, follow-up care, wound care. 00:05 Patient left the ED. as6 Signatures: Dispatcher [employer] EDAnna Powell, HEAD TURNING MACHINE OPERATOR-C HEAD TURNING MACHINE OPERATOR-CkKiki Sánchez ag3 Van Hartmann, PHYLLIS RN as6 Kathy Gandhi RN RN vc1 "
[2021-09-05] MEDS ORDERED: HYDROCODONE/APAP 10/325 TAB ONE (23:55)
[2021-09-06 01:52] VITALS: TEMP 98.9
[2021-09-06 01:55] VITALS: BP 145/86; O2SAT 99
--- NOTE | 2021-09-06 10:45 | RAD REPORT ---
EXAM DESCRIPTION: CT - Head Brain Wo Cont - 09/06/2021 6:43 am CLINICAL HISTORY: 26 years Male TRAUMA TECHNIQUE: Contiguous axial CT images obtained through the brain without IV contrast. Coronal and sa gittal reformatted images also provided. This CT exam was performed according to our departmental dose-optimization program, which includes on e or more of the following dose reduction techniques: automated exposure control, adjustment of the m A and/or kV according to patient size, and/or use of iterative reconstruction technique. COMPARISON: No prior exams provided for comparison. FINDINGS: High right frontal scalp laceration without foreign body. There is no acute skull fracture, intracranial hemorrhage, extra-axial collection, or acute transcort ical infarction. The ventricles are normal in size and contour without mass effect or midline shift. The visualized paranasal sinuses, tympanomastoid cavities, and orbits are normal. IMPRESSION: High right frontal scalp laceration without skull fracture or acute intracranial injury. Electronically signed by: Iliana Castanon MD 09/05/2021 11:07 PM PRODUCT SUPPORT TECHNICIAN Due to temporary technical issues with the PACS/Fluency reporting system, reports are being signed by the in house radiologist without review as a courtesy to ensure prompt reporting. The interpreting r adiologist is fully responsible for the content of the report.
== END 2021-09-06 00:05 | disposition home or self-care (01) ==
LOC: ER 22:02
PROC: 0JQ00ZZ Repair Scalp Subcutaneous Tissue and Fascia, Open Approach (ICD-10-PCS; principal; 2021-09-06)
DX: S01.01XA Laceration without foreign body of scalp, initial encounter (principal); W18.30XA Fall on same level, unspecified, initial encounter; Z23 Encounter for immunization
CPT/HCPCS: 70450; 90471; 90714; 99283

== ENCOUNTER 2022-10-10 07:49 | Emergency (ER) | payer SELFPAY ==
[2022-10-10 09:04] LABS: SARS-COV-2 RT PCR NEGATIVE (NEGATIVE)
--- NOTE | 2022-10-10 09:16 | EDPHYS ---
Physician Documentation [facility] Name: Demetrio Rizzo Jr Age: 27 yrs Sex: Male : 1995 Arrival Date: 10/10/2022 Time: 07:52 Bed 12 Private MD: ED Physician David Chavez HPI: 10/10 08:05 This 27 yrs old Male presents to ER via Ambulatory with complaints of body snw aches,chills. 08:05 Onset: The symptoms/episode began/occurred acutely. Associated signs and symptoms: snw Pertinent positives: congestion, headache, sore throat, chills and bodyaches. Modifying factors: The patient symptoms are alleviated by nothing. It is unknown whether or not the patient has had similar symptoms in the past. The patient has not recently seen a physician. pt started taking Amoxil x 2 doses "because". Historical: - Allergies: 07:59 No Known Allergies; ss - Home Meds: 07:59 None [Active]; ss - PMHx: 07:59 Hypertension; ss - PSHx: 07:59 None; ss - Immunization history:: Client reports having NOT received the Covid vaccine. - Social history:: Smoking status: Patient denies any tobacco usage or history of. ROS: 08:03 Eyes: Negative for injury, pain, redness, and discharge, ENT: Negative for injury, snw pain, and discharge, Neck: Negative for injury, pain, and swelling, Cardiovascular: Negative for chest pain, palpitations, and edema. 08:03 Abdomen/GI: Negative for abdominal pain, nausea, vomiting, diarrhea, and constipation, Back: Negative for injury and pain, : Negative for injury, bleeding, discharge, and swelling, MS/Extremity: Negative for injury and deformity, Skin: Negative for injury, rash, and discoloration, Neuro: Negative for headache, weakness, numbness, tingling, and seizure, Psych: Negative for depression, anxiety, suicide ideation, homicidal ideation, and hallucinations. 08:03 Constitutional: Positive for body aches, chills, malaise. 08:03 Respiratory: Positive for cough, "sounds productive". Exam: 08:02 Head/Face: Normocephalic, atraumatic. Eyes: Pupils equal round and reactive to light, snw extra-ocular motions intact. Lids and lashes normal. Conjunctiva and sclera are non-icteric and not injected. Cornea within normal limits. Periorbital areas with no swelling, redness, or edema. 08:02 Neck: Trachea midline, no thyromegaly or masses palpated, and no cervical lymphadenopathy. Supple, full range of motion without nuchal rigidity, or vertebral point tenderness. No Meningismus. Chest/axilla: Normal chest wall appearance and motion. Nontender with no deformity. No lesions are appreciated. 08:02 Abdomen/GI: Soft, non-tender, with normal bowel sounds. No distension or tympany. No guarding or rebound. No evidence of tenderness throughout. Back: No spinal tenderness. No costovertebral tenderness. Full range of motion. Skin: Warm, dry with normal turgor. Normal color with no rashes, no lesions, and no evidence of cellulitis. MS/ Extremity: Pulses equal, no cyanosis. Neurovascular intact. Full, normal range of motion. Neuro: Awake and alert, GCS 15, oriented to person, place, time, and situation. Cranial nerves II-XII grossly intact. Motor strength 5/5 in all extremities. Sensory grossly intact. Cerebellar exam normal. Normal gait. Psych: Awake, alert, with orientation to person, place and time. Behavior, mood, and affect are within normal limits. 08:02 Constitutional: The patient appears alert, uncomfortable. 08:02 ENT: TM's: rupture, on the left, chronic appearing , Mouth: Oral mucosa: moist, erythematous. 08:02 Cardiovascular: Rate: tachycardic, Rhythm: regular, Pulses: no pulse deficits are appreciated. 08:02 Respiratory: the patient does not display signs of respiratory distress, Respirations: normal, Breath sounds: bronchial sounds, that are moderate, are heard in the left posterior lower lobe and right posterior lower lobe. Vital Signs: 07:57 BP 148 / 96; Pulse 110; Resp 16; Temp 100.3; Pulse Ox 99% on R/A; Weight 90.72 kg; ss Height 5 ft. 6 in. ; Pain 7/10; 07:57 Body Mass Index 32.28 (90.72 kg, 167.64 cm) ss 07:57 Pain Scale: Adult ss MDM: 07:58 Patient medically screened. snw 09:08 Differential diagnosis: viral Infection, bacterial infection, bronchitis, pneumonia. snw Data reviewed: vital signs, nurses notes, lab test result(s). Test considered but Not performed: X-ray: Chest x-ray, to eval for pneumonia, not necessary as pt has already started on abx prior to initial evaluation of this three day febrile illness. Will just continue abx. Test considered but Not performed:. Counseling: I had a detailed discussion with the patient and/or guardian regarding: the historical points, exam findings, and any diagnostic results supporting the discharge/admit diagnosis, the presence of at least one elevated blood pressure reading (>120/80) during this emergency department visit, lab results, the need for outpatient follow up, for definitive care, to return to the emergency department if symptoms worsen or persist or if there are any questions or concerns that arise at home. Special discussion: I have referred the patient to see his PCP for further evaluation of high blood pressure. 10/10 08:00 Order name: COVID-19/FLU A+B; Complete Time: 09:08 ss 10/10 08:02 Order name: Strep; Complete Time: 09:08 snw 10/10 08:33 Order name: Throat Culture EDMS Administered Medications: 09:33 Drug: ZyrTEC - Cetirizine PO 10 mg Route: PO; ss 09:34 Follow up: Response: Medication administered at discharge. ss 09:33 Drug: Famotidine PO 20 mg Route: PO; ss 09:33 Follow up: Response: Medication administered at discharge. ss 09:33 Drug: Amoxicillin-Clavulanate PO 875 mg Route: PO; ss 09:33 Follow up: Response: Medication administered at discharge. Disposition: 10:52 Co-signature as Attending Physician, David Chavez MD I reviewed the patient's care rt provided by the Advanced Practice Provider and agree with the diagnosis and treatment plan. Disposition Summary: 10/10/22 09:15 Discharge Ordered Location: Home snw Condition: Stable snw Diagnosis - Fever presenting with conditions classified elsewhere snw - Acute sinusitis, unspecified snw Followup: snw - With: Emergency Department - When: As needed - Reason: Worsening of condition Followup: snw - With: Private Physician - When: 2 - 3 days - Reason: Recheck today's complaints, Continuance of care, Re-evaluation by your physician Discharge Instructions: - Discharge Summary Sheet snw - Sinusitis, Adult snw - Fever, Adult, [id number] snw Forms: - Work release form snw - Medication Reconciliation Form snw - Thank You Letter snw - Antibiotic Education snw - Prescription Opioid Use snw Prescriptions: - Augmentin 875-125 mg Oral Tablet - take 1 tablet by ORAL route every 12 hours for 10 days; 20 tablet; Refills: 0, snw Product Selection Permitted - Zyrtec 10 mg Oral Tablet - take 1 tablet by ORAL route once daily As needed; 20 tablet; Refills: 0, snw Product Selection Permitted - Pepcid 20 mg Oral Tablet - take 1 tablet by ORAL route once daily; 20 tablet; Refills: 0, Product snw Selection Permitted Signatures: Dispatcher [employer] Laury Boyce FNP-C FNP-Mandeepw Galina Fuentes, PHYLLIS RN ss David Chavez MD MD rt
--- NOTE | 2022-10-10 09:16 | ER ---
Nurse's Notes [facility] Name: Demetrio Rizzo Jr Age: 27 yrs Sex: Male : 1995 Arrival Date: 10/10/2022 Time: 07:52 Bed 12 Private MD: Diagnosis: Fever presenting with conditions classified elsewhere;Acute sinusitis, unspecified Presentation: 10/10 07:57 Chief complaint: Patient states: body aches, chills, cough, congestion and fatigue that ss began yesterday. Coronavirus screen: Client presents with at least one sign or symptom that may indicate coronavirus-19. Ebola Screen: Patient denies exposure to infectious person. Patient denies travel to an Ebola-affected area in the 21 days before illness onset. Initial Sepsis Screen: Does the patient meet any 2 criteria? No. Patient's initial sepsis screen is negative. Does the patient have a suspected source of infection? No. Patient's initial sepsis screen is negative. Risk Assessment: Do you want to hurt yourself or someone else? Patient reports no desire to harm self or others. Onset of symptoms was October 09, 2022. 07:57 Method Of Arrival: Ambulatory ss 07:57 Acuity: DEDE 4 ss Historical: - Allergies: 07:59 No Known Allergies; ss - Home Meds: 07:59 None [Active]; ss - PMHx: 07:59 Hypertension; ss - PSHx: 07:59 None; ss - Immunization history:: Client reports having NOT received the Covid vaccine. - Social history:: Smoking status: Patient denies any tobacco usage or history of. Screenin:00 Abuse screen: Denies threats or abuse. Denies injuries from another. Nutritional ss screening: No deficits noted. Tuberculosis screening: Never had TB. Assessment: 08:00 General: Appears in no apparent distress. comfortable, Behavior is calm. Pain: ss Complains of pain in generalized body aches Pain currently is 7 out of 10 on a pain scale. Quality of pain is described as aching, Pain began 1 day ago. Is continuous. Neuro: Level of Consciousness is awake, alert, obeys commands, Oriented to person, place, time, situation. Respiratory: Airway is patent Respiratory effort is even, unlabored, Respiratory pattern is regular, symmetrical. GI: Patient currently denies diarrhea, vomiting. Derm: Skin is intact, is healthy with good turgor, Skin is pink, warm \T\ dry. normal. Vital Signs: 07:57 BP 148 / 96; Pulse 110; Resp 16; Temp 100.3; Pulse Ox 99% on R/A; Weight 90.72 kg; ss Height 5 ft. 6 in. ; Pain 7/10; 07:57 Body Mass Index 32.28 (90.72 kg, 167.64 cm) ss 07:57 Pain Scale: Adult ss ED Course: 07:52 Patient arrived in ED. mr 07:57 Galina Fuentes, RN is Primary Nurse. ss 07:58 Laury Vargas FNP-C is [facility]. snw 07:58 David Chavez MD is Attending Physician. snw 07:59 Triage completed. ss 07:59 Arm band placed on right wrist. ss 08:00 Patient has correct armband on for positive identification. Bed in low position. ss 09:34 No provider procedures requiring assistance completed. Patient did not have IV access ss during this emergency room visit. Administered Medications: 09:33 Drug: ZyrTEC - Cetirizine PO 10 mg Route: PO; ss 09:34 Follow up: Response: Medication administered at discharge. ss 09:33 Drug: Famotidine PO 20 mg Route: PO; ss 09:33 Follow up: Response: Medication administered at discharge. ss 09:33 Drug: Amoxicillin-Clavulanate PO 875 mg Route: PO; ss 09:33 Follow up: Response: Medication administered at discharge. ss Medication: 08:00 VIS not applicable for this client. ss Outcome: 09:15 Discharge ordered by . snw 09:34 Discharged to home ambulatory. ss 09:34 Condition: good 09:34 Discharge instructions given to patient, family, Instructed on discharge instructions, follow up and referral plans. medication usage, Demonstrated understanding of instructions, follow-up care, medications, Prescriptions given X 3. 09:34 Patient left the ED. ss Signatures: Laury Vargas FNP-C FNP-Csnw Constanza Ashley mr Galina Fuentes, RN RN ss
[2022-10-10] MEDS ORDERED: CETIRIZINE HCL 5 MG TABLET ONE (09:33)
[2022-10-10] MEDS ORDERED: AMOX/K CLAV 875 MG TAB ONE (09:33)
[2022-10-10] MEDS ORDERED: FAMOTIDINE 20 MG TAB ONE (09:33)
[2022-10-10 09:39] VITALS: BP 148/96; TEMP 100.3; O2SAT 99
[2022-10-10] MEDS ORDERED: NA CHLORIDE 0.9% 1,000 ML ONE (09:43)
[2022-10-10] MEDS ORDERED: HYDROMORPHONE HCL 1 MG/ML INJ ONE (09:43)
[2022-10-10] MEDS ORDERED: TDAP (DIPHTH,PERTUSS(ACELL),TET VAC) 0.5 ML VIAL IMVAC ONE (09:44)
== END 2022-10-10 09:34 | disposition home or self-care (01) ==
LOC: ER 07:49
DX: J01.90 Acute sinusitis, unspecified (principal); Z20.822 Contact with and (suspected) exposure to COVID-19
CPT/HCPCS: 0240U; 87070; 87081; 99283; J1170; J7030

== ENCOUNTER 2023-01-27 21:41 | Emergency (ER) | payer SELFPAY ==
[2023-01-27] MEDS ORDERED: METOPROLOL TAR 25 MG TAB ONE (23:25)
[2023-01-28 00:10] LABS: Absolute Lymphocytes (CBC) 3.4 K/uL (0.7-4.9); Hematocrit 43.9 % (39.6-49.0); Lymphocytes % 34.4 % (15.3-44.8); MCV 87.5 fL (80-100); MPV 9.1 fL (7.6-11.3); RBC Red Blood Cell Count 5.02 M/uL (4.33-5.43)
[2023-01-28 00:16] LABS: Troponin High Sensitivity 4.7 pg/mL (<58.9)
--- NOTE | 2023-01-28 00:53 | ER ---
Nurse's Notes [facility] Name: Demetrio Rizzo Jr Age: 27 yrs Sex: Male : 1995 Arrival Date: 01/27/2023 Time: 21:41 Bed 14 Private MD: Diagnosis: Headache;Hypertensive heart disease without heart failure;Other visual disturbances Presentation: 01/27 21:51 Chief complaint: Patient states: "I've been getting migraines for the past few days vc1 where the light makes it worse and I feel a little dizzy with it. This has happened before and it was because of my blood pressure. I'm supposed to take medicine but I ran out and forget about it.". Coronavirus screen: Vaccine status: Patient reports being unvaccinated. Client denies travel out of the [place] in the last 14 days. At this time, the client does not indicate any symptoms associated with coronavirus-19. Ebola Screen: Patient negative for fever greater than or equal to 101.5 degrees Fahrenheit, and additional compatible Ebola Virus Disease symptoms Patient denies exposure to infectious person. Patient denies travel to an Ebola-affected area in the 21 days before illness onset. No symptoms or risks identified at this time. 21:51 Method Of Arrival: Ambulatory vc1 21:51 Initial Sepsis Screen: Does the patient meet any 2 criteria? No. Patient's initial vc1 sepsis screen is negative. Does the patient have a suspected source of infection? No. Patient's initial sepsis screen is negative. Risk Assessment: Do you want to hurt yourself or someone else? Patient reports no desire to harm self or others. Onset of symptoms was January 24, 2023. 21:51 Acuity: DEDE 3 vc1 Triage Assessment: 21:51 Headache History: The patient has had previous headaches and this one is similar to vc1 previous episodes. General: Appears in no apparent distress. uncomfortable, Behavior is calm, cooperative, appropriate for age. Pain: Complains of pain in "migraine" Pain does not radiate. Pain currently is 6 out of 10 on a pain scale. at worst was 9 out of 10 on a pain scale. Quality of pain is described as sharp, Pain began 2-3 days ago. Is continuous, Noted to be grimacing, resistant to movement, Also complains of photophobia. EENT: No deficits noted. No signs and/or symptoms were reported regarding the EENT system. Neuro: Fang Agitation-Sedation Scale (RASS): 0 - Alert and Calm Level of Consciousness is awake, alert, obeys commands, Oriented to person, place, time, situation, Appropriate for age Reports headache in entire. Cardiovascular: No deficits noted. Respiratory: Airway is patent Respiratory effort is even, unlabored, Respiratory pattern is regular, symmetrical. GI: No deficits noted. No signs and/or symptoms were reported involving the gastrointestinal system. : No deficits noted. No signs and/or symptoms were reported regarding the genitourinary system. Derm: No deficits noted. No signs and/or symptoms reported regarding the dermatologic system. Musculoskeletal: No deficits noted. No signs and/or symptoms reported regarding the musculoskeletal system. Historical: - Allergies: 21:51 Aspirin; vc1 - Home Meds: 21:51 None [Active]; vc1 - PMHx: 21:51 Hypertension; vc1 - PSHx: 21:51 None; vc1 - Immunization history:: Client reports having NOT received the Covid vaccine. - Social history:: Smoking status: Patient denies any tobacco usage or history of. Screenin:51 [facility] ED Fall Risk Assessment (Adult) History of falling in the last 3 months, vc1 including since admission No falls in past 3 months (0 pts) Confusion or Disorientation No (0 pts) Intoxicated or Sedated No (0 pts) Impaired Gait No (0 pts) Mobility Assist Device Used No (0 pt) Altered Elimination No (0 pt) Score/Fall Risk Level 0 - 2 = Low Risk Oriented to surroundings, Maintained a safe environment, Educated pt \\T\\ family on fall prevention, incl call for assistance when getting out of bed, Hourly rounding (assess needs \\T\\ fall precautionary measures) done. Abuse screen: Denies threats or abuse. Nutritional screening: No deficits noted. Tuberculosis screening: No symptoms or risk factors identified. Assessment: 01/28 00:00 Reassessment: No changes from previously documented assessment. Patient and/or family vc1 updated on plan of care and expected duration. Pain level reassessed. Patient is alert, oriented x 3, equal unlabored respirations, skin warm/dry/pink. Vital Signs: 01/27 21:52 BP 163 / 103; Pulse 82; Resp 16; Temp 97.9(O); Pulse Ox 98% on R/A; Weight 86.18 kg; rv1 Height 5 ft. 6 in. ; Pain 0/10; 01/28 00:00 BP 139 / 102; Pulse 67; Resp 16; Pulse Ox 100% ; vc1 01/27 21:52 Body Mass Index 30.67 (86.18 kg, 167.64 cm) rv1 01/27 21:52 Pain Scale: Adult [facility] ED Course: 01/27 21:46 Patient arrived in ED. ja2 21:51 Arm band placed on left wrist. vc1 21:51 Patient has correct armband on for positive identification. Bed in low position. Call vc1 light in reach. Pulse ox on. NIBP on. 21:51 No provider procedures requiring assistance completed. vc1 22:27 Tee Medina PA is PHCP. cp 22:27 Mark Anthony Cao MD is Attending Physician. cp 22:34 Kathy Gandhi RN is Primary Nurse. vc1 22:37 Triage completed. vc1 23:21 Basic Metabolic Panel Sent. vc1 23:21 CBC with Diff Sent. vc1 23:21 Magnesium Sent. vc1 23:21 Troponin HS Sent. vc1 23:22 Inserted saline lock: 20 gauge in right antecubital area, using aseptic technique. [id number] Blood collected. 23:23 EKG done, by preventative maintenance technician. jl10 23:35 CT Head Brain wo Cont In Process Unspecified. EDMS 01/28 01:06 IV discontinued, intact, bleeding controlled, No redness/swelling at site. Pressure vc1 dressing applied. Administered Medications: 01/27 22:43 CANCELLED (Physician Discretion): Lisinopril PO 10 mg PO once cp 01/28 00:31 Not Given (Physician Discretion): Metoprolol PO 12.5 mg PO once cp 00:52 CANCELLED (Physician Discretion): Lisinopril PO 5 mg PO once cp 00:53 Drug: Acetaminophen PO 1000 mg Route: PO; vc1 01:06 Follow up: Response: No adverse reaction; Marked relief of symptoms vc1 01:03 Drug: Lisinopril PO 5 mg Route: PO; vc1 01:06 Follow up: Response: No adverse reaction; Medication administered at discharge. vc1 Medication: 01/27 21:51 VIS not applicable for this client. vc1 Outcome: 01/28 00:53 Discharge ordered by . clair 01:06 Discharged to home ambulatory. vc1 01:06 Condition: good 01:06 Discharge instructions given to patient, Instructed on discharge instructions, follow up and referral plans. medication usage, Demonstrated understanding of instructions, follow-up care, medications, Prescriptions given X 1. 01:06 Patient left the ED. vc1 Signatures: Dispatcher [employer] EDMS Tee Medina PA PA cp Alexander, Jessica ja2 Calcote, Vanessa, RN RN vc1 Marcie Jeffries1 Renata Triana10
--- NOTE | 2023-01-28 00:53 | EDPHYS ---
Physician Documentation [facility] Name: Demetrio Rizzo Jr Age: 27 yrs Sex: Male : 1995 Arrival Date: 01/27/2023 Time: 21:41 Bed 14 Private MD: ED Physician Mark Anthony Cao HPI: 01/27 22:50 This 27 yrs old Male presents to ER via Ambulatory with complaints of cp Headache, Blurred Vision. 22:50 The patient complains of pain to the top of head and forehead. cp 22:50 The patient describes the headache as aching, waxing and waning. Onset: The cp symptoms/episode began/occurred for past few days. Associated signs and symptoms: Pertinent positives: blurred vision, Pertinent negatives: altered mental status, fever, neck stiffness, Photophobia sinus congestion, sinus tenderness, vomiting, weakness. Severity of symptoms: in the emergency department the pain has improved, mildly. Headache History: The patient has had previous headaches and this one is similar to previous episodes. Patient reports history of HTN and being prescribed blood pressure medication in the past. Patient ran out months ago and has not f/u. Has had similar headaches in the past when blood pressure was elevated. Historical: - Allergies: 21:51 Aspirin; vc1 - Home Meds: 21:51 None [Active]; vc1 - PMHx: 21:51 Hypertension; vc1 - PSHx: 21:51 None; vc1 - Immunization history:: Client reports having NOT received the Covid vaccine. - Social history:: Smoking status: Patient denies any tobacco usage or history of. ROS: 22:55 Constitutional: Negative for body aches, chills, fever, poor PO intake. cp 22:55 ENT: Negative for injury, pain, and discharge. cp 22:55 Eyes: Positive for blurry vision, Negative for pain, redness, vision loss. 22:55 Neck: Negative for pain with movement, pain at rest, stiffness. 22:55 Cardiovascular: Negative for chest pain, edema, palpitations. 22:55 Respiratory: Negative for cough, shortness of breath, wheezing. 22:55 Abdomen/GI: Negative for abdominal pain, vomiting, diarrhea, constipation. 22:55 Neuro: Positive for headache, Negative for altered mental status, dizziness, numbness, syncope, weakness. 22:55 All other systems are negative. Exam: 23:00 Constitutional: The patient appears in no acute distress, alert, awake, cp non-diaphoretic, non-toxic, well developed, well nourished. 23:00 Head/Face: Normocephalic, atraumatic. cp 23:00 Eyes: Periorbital structures: appear normal, Pupils: equal, round, and reactive to light and accomodation, Extraocular movements: intact throughout, Conjunctiva: normal, no exudate, no injection, Sclera: no appreciated abnormality, Lids and lashes: appear normal, bilaterally. 23:00 ENT: External ear(s): are unremarkable, Ear canal(s): are normal, clear, TM's: dullness, bilaterally, Nose: is normal, Mouth: Lips: moist, Oral mucosa: pink and intact, moist, Posterior pharynx: is normal, airway is patent, no erythema, no exudate. 23:00 Neck: ROM/movement: is normal, is supple, without pain, no range of motions limitations, no meningismus, no nuchal rigidity. 23:00 Chest/axilla: Inspection: normal. 23:00 Cardiovascular: Rate: normal, Rhythm: regular, Edema: is not appreciated, JVD: is not appreciated. 23:00 Respiratory: the patient does not display signs of respiratory distress, Respirations: normal, no use of accessory muscles, no retractions, labored breathing, is not present, Breath sounds: are clear throughout, no decreased breath sounds, no stridor, no wheezing. 23:00 Abdomen/GI: Exam negative for discomfort, distension, guarding, Inspection: abdomen appears normal. 23:00 Back: pain, is absent, ROM is normal. 23:00 Neuro: Orientation: to person, place \T\ time. Mentation: is normal, Cerebellar function: is grossly normal, Motor: moves all fours, strength is normal, Sensation: is normal, Gait: is steady, at a normal pace, without difficulty. 23:17 ECG was reviewed by the Attending Physician. cp Vital Signs: 21:52 BP 163 / 103; Pulse 82; Resp 16; Temp 97.9(O); Pulse Ox 98% on R/A; Weight 86.18 kg; rv1 Height 5 ft. 6 in. ; Pain 0/10; 07/10 00:00 BP 139 / 102; Pulse 67; Resp 16; Pulse Ox 100% ; vc1 01/27 21:52 Body Mass Index 30.67 (86.18 kg, 167.64 cm) rv1 01/27 21:52 Pain Scale: Adult rv1 MDM: 01/27 22:29 Patient medically screened. 01/28 00:52 Data reviewed: vital signs, nurses notes, lab test result(s), EKG, radiologic studies, cp CT scan. 00:52 I considered the following discharge prescriptions or medication management in the emergency department Medications were administered in the Emergency Department. See MAR. Independent interpretation of the following test(s) in the Emergency Department EKG: See my EKG interpretation above. Care significantly affected by the following chronic conditions: Hypertension. Counseling: I had a detailed discussion with the patient and/or guardian regarding: the historical points, exam findings, and any diagnostic results supporting the discharge/admit diagnosis, the presence of at least one elevated blood pressure reading (>120/80) during this emergency department visit, lab results, radiology results, the need for outpatient follow up, for definitive care, a family practitioner, to return to the emergency department if symptoms worsen or persist or if there are any questions or concerns that arise at home. Response to treatment: the patient's symptoms have mildly improved after treatment, and as a result, I will discharge patient. 01/27 22:42 Order name: Basic Metabolic Panel; Complete Time: 00:30 01/27 22:42 Order name: CBC with Diff; Complete Time: 00:30 01/27 22:42 Order name: Magnesium; Complete Time: 00:30 01/27 22:42 Order name: Troponin HS; Complete Time: 00:30 01/27 22:42 Order name: CT Head Brain wo Cont 01/27 22:42 Order name: EKG; Complete Time: 22:42 01/27 22:42 Order name: Cardiac monitoring; Complete Time: 23:21 01/27 22:42 Order name: EKG - Nurse/Tech; Complete Time: 23:21 01/27 22:42 Order name: IV Saline Lock; Complete Time: 23:21 01/27 22:42 Order name: Labs collected and sent; Complete Time: 23:21 01/27 22:42 Order name: O2 Per Protocol; Complete Time: 23:21 cp 01/27 22:42 Order name: O2 Sat Monitoring; Complete Time: 23:21 cp EC/09 23:17 Rate is 70 beats/min. Rhythm is regular. MO interval is normal. QRS interval is normal. cp QT interval is normal. T waves are Inverted in lead aVR. Interpreted by me. Reviewed by me. Administered Medications: 22:43 CANCELLED (Physician Discretion): Lisinopril PO 10 mg PO once cp 01/28 00:31 Not Given (Physician Discretion): Metoprolol PO 12.5 mg PO once cp 00:52 CANCELLED (Physician Discretion): Lisinopril PO 5 mg PO once cp 00:53 Drug: Acetaminophen PO 1000 mg Route: PO; vc1 01:06 Follow up: Response: No adverse reaction; Marked relief of symptoms vc1 01:03 Drug: Lisinopril PO 5 mg Route: PO; vc1 01:06 Follow up: Response: No adverse reaction; Medication administered at discharge. vc1 Disposition: 03:19 Co-signature as Attending Physician, Mark Anthony Cao MD I agree with the assessment and kdr plan of care. Disposition Summary: 01/28/23 00:53 Discharge Ordered Location: Home cp Problem: new cp Symptoms: have improved cp Condition: Stable cp Diagnosis - Headache cp - Hypertensive heart disease without heart failure cp - Other visual disturbances cp Followup: cp - With: Private Physician - When: 2 - 3 days - Reason: Recheck today's complaints Discharge Instructions: - Discharge Summary Sheet cp - Blurred Vision, Adult cp - General Headache Without Cause cp - Hypertension, Adult cp - Form - Blood Pressure Record Sheet cp - How to Take Your Blood Pressure cp Forms: - Medication Reconciliation Form cp - Thank You Letter cp - Antibiotic Education cp - Prescription Opioid Use cp - [email or web address] cp - Work release form vc1 Prescriptions: - Lisinopril 5 mg Oral Tablet - take 1 tablet by ORAL route once daily; 30 tablet; Refills: 0, Product cp Selection Permitted Signatures: Dispatcher [employer] EDMark Anthony Baxter MD MD kdr Page, Corey, PA PA cp Kathy Gandhi RN RN vc1 Corrections: (The following items were deleted from the chart) 01/27 22:43 22:42 Lisinopril PO 10 mg PO once ordered. cp cp 01/28 00:52 00:52 Lisinopril PO 5 mg PO once ordered. cp cp
[2023-01-28] MEDS ORDERED: ACETAMINOPHEN 500 MG TAB ONE (01:00)
[2023-01-28] MEDS ORDERED: lisinopriL 5 MG TAB ONE (01:06)
[2023-01-28 01:24] VITALS: TEMP 97.9
[2023-01-28 01:26] VITALS: BP 139/102; O2SAT 100
--- NOTE | 2023-01-28 17:11 | EKG ---
Test Date: 2023-01-27 Test Time: 23:10:01 Associate Media Planner: EDY MEASUREMENT RESULTS: Intervals: Rate: 70 NE: 180 QRSD: 94 QT: 386 QTc: 416 [place]: P: 19 NE: 180 QRS: 18 T: 29 INTERPRETIVE STATEMENTS: Normal sinus rhythm Normal ECG Compared to ECG 02/01/2019 14:43:52 Sinus bradycardia no longer present Sinus arrhythmia no longer present Incomplete right bundle-branch block no longer present Electronically Signed On 01-28-23 17:09:41 CDT by Joe Rod
--- NOTE | 2023-01-29 10:59 | RAD REPORT ---
EXAM DESCRIPTION: CT - Head Brain Wo Cont - 01/28/2023 7:19 am CLINICAL HISTORY: HEADACHE TECHNIQUE: Contiguous axial CT images obtained through the brain without IV contrast. Coronal and sa gittal reformatted images were provided. This exam was performed according to our departmental dose-optimization program, which includes autom ated exposure control, adjustment of the mA and/or kV according to patient size and/or use of iterati ve reconstruction technique. COMPARISON: None available for comparison FINDINGS: Brain: No significant white matter changes. No focal mass effect. Salcedo-white matter differ entiation is within normal limits. No hemorrhage. Ventricles: No ventriculomegaly or midline shift. Extra-axial spaces: No extra-axial collection or hemorrhage. Paranasal sinuses and mastoid air cells: Well-aerated Bones: Unremarkable Soft tissues: Unremarkable IMPRESSION: No evidence of acute intracranial pathology. Electronically signed by: River Camilo MD 01/28/2023 12:19 AM CDT Due to temporary technical issues with the PACS/Fluency reporting system, reports are being signed by the in house radiologists without review as a courtesy to insure prompt reporting. The interpreting radiologist is fully responsible for the content of the report.
== END 2023-01-28 01:06 | disposition home or self-care (01) ==
LOC: ER 21:41
DX: I11.9 Hypertensive heart disease without heart failure (principal)
CPT/HCPCS: 36415; 70450; 80048; 83735; 84484; 85025; 93005; 99284